=== PATIENT | female | born 1980 | race African-American/Black ===

== ENCOUNTER 2024-06-22 10:23 | Emergency (ER) | payer OTHER ==
[~2024-06-22] VITALS: Ht 160 cm; Wt 107.0 kg
[2024-06-22 10:37] VITALS: BP 174/108; TEMP 98
[2024-06-22] MEDS ORDERED: IBUP-1957 PO ×2 (10:46→22:50)
[2024-06-22] MEDS ORDERED: ACETAMINOPHEN ES 500 MG TABLET ONE (10:50)
[2024-06-22] MEDS ORDERED: OXYC-128 PO ×2 (10:53→22:50)
[2024-06-22] MEDS: ACETAMINOPHEN ES 500 MG TABLET PO ONE (10:56)
[2024-06-22 10:58] VITALS: O2SAT 99
== END 2024-06-22 10:59 | disposition home or self-care (01) ==
LOC: ER 10:30
DX: S13.4XXA Sprain of ligaments of cervical spine, initial encounter (principal); M25.512 Pain in left shoulder; M25.511 Pain in right shoulder; Z79.1 Long term (current) use of non-steroidal anti-inflammatories (NSAID); V43.52XA Car driver injured in collision with other type car in traffic accident, initial encounter; Y93.89 Activity, other specified; Y92.488 Other paved roadways as the place of occurrence of the external cause; Y99.8 Other external cause status